=== PATIENT | male | born 1995 | race Two or more races ===

== ENCOUNTER 2017-08-21 18:29 | Inpatient (IN) | payer SELFPAY ==
[~2017-08-21] VITALS: Ht 177.8 cm; Wt 63.5 kg
[2017-08-21 18:40] VITALS: BP 127/79
[2017-08-21] MEDS ORDERED: HALOPERIDOL IM 5 MG/ML VIAL IM ONE (19:40)
[2017-08-21] MEDS ORDERED: NACL 0.9% 1,000 ML IV ONE (19:40)
[2017-08-21] MEDS ORDERED: diphenhydrAMINE 50 MG/ML VIAL IM ONE (19:40)
[2017-08-21 19:52] LABS: BASOPHILS # (AUTO) 0.5 K/uL (0.00-0.22); EOSINOPHILS # (AUTO) 0.2 K/uL (0-0.4); HEMATOCRIT 46.4 % (36-52); HEMOGLOBIN 15.2 g/dL (12.0-18.0); LYMPHOCYTES # (AUTO) 2.6 K/uL (2.0-11.5); MEAN CORPUSCULAR HEMOGLOBIN 28 pg (27-31); MEAN CORPUSCULAR HGB CONC 33 g/dL (33-37); MEAN CORPUSCULAR VOLUME 86.4 fL (80-94); MONOCYTES # (AUTO) 0.8 K/uL (0.8-1.0); PLATELET COUNT (AUTO) 332 K/uL (140-450); RED BLOOD CELL COUNT(AUTO) 5.37 MIL/uL (4.20-6.10); WHITE BLOOD COUNT (AUTO) 12.1 K/uL (4.8-10.8)
[2017-08-21 20:06] LABS: ANION GAP 18.3 (8-16); CARBON DIOXIDE 25.3 mmol/L (21-32); CHLORIDE 106 mmol/L (98-107); CREATININE 0.8 mg/dL (0.7-1.3); GFR ARICAN-AMERICAN 157 mL/min (>90); GLUCOSE 112 mg/dL (74-106); POTASSIUM 3.6 mmol/L (3.5-5.1); SODIUM SERUM 146 mmol/L (136-145); UREA NITROGEN, BLOOD 11 mg/dL (7-18)
[2017-08-21 20:15] LABS: ALBUMIN 4.2 g/dL (3.4-5.0); ASPARTATE AMINOTRANSFERASE 31 U/L (15-37); TOTAL BILIRUBIN 0.3 mg/dL (0.0-1.0)
[2017-08-21 20:16] LABS: SALICYLATE < 2.8 mg/dL (2.8-20.0)
[2017-08-21 20:17] LABS: ACETAMINOPHEN < 0.5 ug/ml (10-30)
[2017-08-21] MEDS ORDERED: MULTIVITAMIN-12 10 ML, THIAMINE 100 MG, MAGNESIUM SULFATE 50% 2,000 MG, FOLIC ACID 5 MG... IV ONE ×5 (20:20)
[2017-08-21] MEDS ORDERED: LORazepam 2 MG/ML VIAL IM ONE (20:20)
[2017-08-21] MEDS ORDERED: FOLIC ACID 5 MG/ML SYR ONE (21:05)
[2017-08-21] MEDS ORDERED: THIAMINE 200 MG/2 ML VIAL ONE (21:05)
[2017-08-21] MEDS ORDERED: MAGNESIUM SULFATE 50% 1000 MG/2 ML VIAL IV ONE (21:05)
[2017-08-21] MEDS ORDERED: MULTIVITAMIN-12 10 ML VIAL IV ONE (21:05)
[2017-08-21] MEDS ORDERED: NACL 0.9% 1,000 ML IV SCH (23:33)
[2017-08-21] MEDS ORDERED: ACETAMINOPHEN 325 MG TAB PO PRN (23:35)
[2017-08-21] MEDS ORDERED: HYDROcodone/APAP 7.5/325 MG 1 TAB PO PRN (23:35)
[2017-08-21] MEDS ORDERED: ONDANSETRON 4 MG/2 ML VIAL IVP PRN (23:35)
[2017-08-21] MEDS ORDERED: LORazepam 2 MG/ML VIAL IVP PRN (23:40)
[2017-08-21 23:53] LABS: PROTHROMBIN TIME 10.9 secs (10.8-13.4)
[2017-08-22 00:12] LABS: CHOL/HDL RATIO 2.2 (1-4.5); FREE T4 (FREE THYROXINE) 1.14 ng/dL (0.76-1.46); MAGNESIUM 2.6 mg/dL (1.8-2.4); PHOSPHORUS 4.3 mg/dL (2.5-4.9); THYROID STIMULATING HORMONE 1.8 uIU/mL (0.34-3.74)
[2017-08-22 00:15] VITALS: BP 114/55
[2017-08-22] MEDS ORDERED: NACL 0.9% 1,000 ML IV ONE (00:20)
[2017-08-22 04:00] VITALS: BP 122/56
[2017-08-22] MEDS ORDERED: LORazepam 1 MG TAB PO SCH (05:00)
[2017-08-22 08:00] VITALS: BP 111/61
[2017-08-22 08:25] LABS: ANION GAP 13.4 (8-16); CARBON DIOXIDE 25.4 mmol/L (21-32); CREATININE 0.7 mg/dL (0.7-1.3); POTASSIUM 3.8 mmol/L (3.5-5.1)
[2017-08-22 08:28] LABS: BASOPHILS # (AUTO) 0.1 K/uL (0.00-0.22); BASOPHILS % (AUTO) 0.8 % (0.0-2.0); EOSINOPHILS # (AUTO) 0.3 K/uL (0-0.4); EOSINOPHILS % (AUTO) 3.7 % (0.0-4.0); HEMATOCRIT 38.9 % (36-52); HEMOGLOBIN 12.7 g/dL (12.0-18.0); LYMPHOCYTES # (AUTO) 1.8 K/uL (2.0-11.5); MEAN CORPUSCULAR HEMOGLOBIN 29 pg (27-31); MEAN CORPUSCULAR HGB CONC 33 g/dL (33-37); MEAN CORPUSCULAR VOLUME 88.6 fL (80-94); MONOCYTES # (AUTO) 0.6 K/uL (0.8-1.0); MONOCYTES % (AUTO) 7.2 % (1.7-9.3); NEUTROPHILS # (AUTO) 5.1 K/uL (1.8-7.7); NEUTROPHILS % (AUTO) 65.3 % (42.2-75.2); PLATELET COUNT (AUTO) 273 K/uL (140-450); RED BLOOD CELL COUNT(AUTO) 4.39 MIL/uL (4.20-6.10); WHITE BLOOD COUNT (AUTO) 7.8 K/uL (4.8-10.8)
[2017-08-22 08:44] LABS: PHOSPHORUS 4.1 mg/dL (2.5-4.9)
[2017-08-22] MEDS ORDERED: THIAMINE 100 MG TAB PO SCH (09:00)
[2017-08-22] MEDS ORDERED: FOLIC ACID 1 MG TAB PO SCH (09:00)
[2017-08-22] MEDS ORDERED: DOCUSATE SODIUM 100 MG GELCAP PO SCH (09:00)
[2017-08-22] MEDS ORDERED: MULTIVITAMIN 1 TAB PO SCH (09:00)
[2017-08-22 10:06] LABS: BILIRUBIN,URINE NEGATIVE (NEGATIVE); BLOOD, URINE NEGATIVE (NEGATIVE); COLOR,URINE YELLOW (YELLOW); LEUKOCYTE ESTERASE ,URINE NEGATIVE (NEGATIVE); NITRITE, URINE NEGATIVE (NEGATIVE); PH,URINE 5.5 (5.0-9.0); UGLUCOSE NEGATIVE (NEGATIVE)
[2017-08-22 10:30] LABS: APPEARANCE,URINE SLIGHTLY HAZY (CLEAR)
[2017-08-22 10:33] LABS: RBC,URINE NONE SEEN /HPF (0-5); WBC,URINE 0-5 (RARE) /HPF (0-5)
[2017-08-22 10:49] LABS: BARBITURATE, URINE NEG. ng/ml (NEG <=200); BENZODIAZEPINE, URINE NEG. ng/mL (NEG <=200); CANNABINOID, URINE NEG. ng/mL (NEG <=50); COCAINE, URINE POS. ng/mL (NEG <=300); OPIATE, URINE NEG. ng/mL (NEG <=2000); PHENCYCLIDINE SCREEN,URINE NEG. ng/mL (NEG <=25)
== END 2017-08-22 08:50 | disposition left against medical advice (07) | DRG 894 ==
LOC: MED 18:53 → MTU 23:37
PROVIDERS: ADMIT Family Medicine Sports Medicine; ATTEND Family Medicine Sports Medicine
DX: F10.129 Alcohol abuse with intoxication, unspecified (principal); G93.41 Metabolic encephalopathy; E87.0 Hyperosmolality and hypernatremia; Y90.8 Blood alcohol level of 240 mg/100 ml or more; Z53.21 Procedure and treatment not carried out due to patient leaving prior to being seen by health care provider
CPT/HCPCS: 36415; 71045; 80048; 80053; 80305; 81001; 82150; 82550; 83036; 83690; 83735; 83880; 84100; 84439; 84443; 84484; 85025; 85610; 85730; 87081; 93005; 96365; 96372; 99285; A9153; G0480; G0482; J1200; J1630; J2060; J3411; J3475; J3490; J7030

== ENCOUNTER 2018-09-04 22:02 | Emergency (ER) | payer SELFPAY ==
[~2018-09-04] VITALS: Ht 177.8 cm; Wt 59.0 kg
--- NOTE | 2018-09-04 22:02 | NUR ---
PT BIB [facility], PREBOOK. TAKEN TO CHAIR E
[2018-09-04 22:03] VITALS: BP 150/80
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
[2018-09-04 22:35] VITALS: BP 150/80
--- NOTE | 2018-09-04 22:35 | NUR ---
PATIENT BIB [facility]. PATIENT EXAMINED BY DR. GONZALEZ. PATIENT MEDICALLY CLEARED AND RELEASED IN CUSTODY IN STABLE CONDITION. ORIGINAL PRE-BOOK FORM GIVEN TO OFFICER #[id number].
== END 2018-09-04 22:34 ==
LOC: MED 22:02
DX: S05.12XA Contusion of eyeball and orbital tissues, left eye, initial encounter (principal); Z02.89 Encounter for other administrative examinations; V53.5XXA Driver of pick-up truck or van injured in collision with car, pick-up truck or van in traffic accident, initial encounter; Y93.89 Activity, other specified; Y92.89 Other specified places as the place of occurrence of the external cause; Y99.8 Other external cause status
CPT/HCPCS: 99283